=== PATIENT | female | born 1955 | race Caucasian/White ===

== ENCOUNTER 2022-08-15 18:35 | Emergency (ER) | payer OTHER ==
[2022-08-15 18:51] VITALS: BP 128/79; PULSE 94; RESP 18; TEMP 98.4; BMI 23.1
[2022-08-15 21:32] LABS: EPI CELLS 9 /uL (0-25.1); HYALINE CASTS 1 /uL (0-3.1); URINE APPEARANCE TURBID; URINE BACTERIA >9,000 /uL (0-1359); URINE BILIRUBIN NEGATIVE (NEGATIVE); URINE COLOR DK YELLOW; URINE GLUCOSE (UA) NEGATIVE (NEGATIVE); URINE KETONE NEGATIVE (NEGATIVE); URINE LEUK ESTERASE 3+ (NEGATIVE); URINE NITRITE POSITIVE (NEGATIVE); URINE PROTEIN 3+ (NEGATIVE); URINE WBC 6212 /uL (0-25.8)
[2022-08-15 21:49] LABS: URINE RBC 342.7 /uL (0-23.9)
== END 2022-08-15 22:30 | disposition home or self-care (01) ==
LOC: JERFT 18:35
DX: N39.0 Urinary tract infection, site not specified (principal)
CPT/HCPCS: 81003; 99283-25